=== PATIENT | male | born 1995 | race Caucasian/White ===

== ENCOUNTER 2019-01-21 19:03 | Emergency (ER) | payer OTHER, MEDICAID ==
--- NOTE | 2019-01-22 10:21 | EDM.PDOC ---
ED HPI GENERAL MEDICAL PROBLEM - General Chief Complaint: General Stated Complaint: L KNEE PAIN Time Seen by Provider: 01/21/19 19:15 Source of Information: Reports: Patient History Limitations: Reports: No Limitations - History of Present Illness INITIAL COMMENTS - FREE TEXT/NARRATIVE: According to patient, he was at work. He stepped into a hole in the ground and felt sharp pain in his left knee. Pt is here for evaluation. Pt claims this happened just prior to arrival and he has been able to walk on his left foot. Pain he rates is at 3-4/10, but present all the time. No swelling of the knee. No other complaints. Onset: Today Onset Date: 01/21/19 Onset Time: 18:30 Duration: Resolved Prior to Arrival Location: Reports: Lower Extremity, Left Quality: Reports: Ache Severity: Mild left knee Pain Score (Numeric/FACES): 3 - Related Data Allergies Allergy/AdvReac Type Severity Reaction Status Date / Time No Known Allergies Allergy Verified 01/21/19 19:30 Home Meds: Home Meds NK [No Known Home Meds] 01/21/19 [History] ED ROS GENERAL - Review of Systems Review Of Systems: See Below Constitutional: Denies: Fever, Chills HEENT: Denies: Rhinitis, Throat Pain Respiratory: Denies: Cough, Sputum Cardiovascular: Denies: Chest Pain, Lightheadedness GI/Abdominal: Denies: Abdominal Pain, Nausea, Vomiting Musculoskeletal: Reports: Joint Pain. Denies: Joint Swelling Skin: Denies: Bruising, Pruritis, Rash ED EXAM, GENERAL - Physical Exam Exam: See Below Exam Limited By: No Limitations General Appearance: Alert, WD/WN, No Apparent Distress Eye Exam: Bilateral Eye: EOMI, PERRL Ears: Normal External Exam, Normal Canal, Hearing Grossly Normal, Normal TMs Ear Exam: Bilateral Ear: Auricle Normal, Canal Normal, TM normal Nose: Normal Inspection, Normal Mucosa, No Blood Throat/Mouth: Normal Inspection, Normal Lips, Normal Teeth, Normal Gums, Normal Oropharynx, Normal Voice, No Airway Compromise Head: Atraumatic, Normocephalic Neck: Normal Inspection, Supple, Non-Tender, Full Range of Motion Respiratory/Chest: No Respiratory Distress, Lungs Clear, Normal Breath Sounds, No Accessory Muscle Use, Chest Non-Tender Cardiovascular: Normal Peripheral Pulses, Regular Rate, Rhythm, No Edema, No Gallop, No JVD, No Murmur, No Rub Extremities: Normal Inspection, Normal Range of Motion, No Pedal Edema, Normal Capillary Refill, Other (Left Knee: There is no obvious swelling or deformity of shlel knee. He does have Good ROM. Tender around the joint line. Normal Varus and valgus strain.) Neurological: Alert, Oriented, CN II-XII Intact, Normal Cognition, Normal Gait Course - Vital Signs Text/Narrative:: Pt's X-ray of left knee appears normal. Pt reassured that he has strained his knee. Motrin 800mg 3 times daily. Cold compresses 3-4 times daily.Advised to take it easy , okay to return to work. Last Recorded V/S: Last Vital Signs Temp 98.8 F 01/21/19 19:14 Pulse 112 H 01/21/19 19:14 Resp 16 01/21/19 19:14 BP 126/74 01/21/19 19:14 Pulse Ox 97 01/21/19 19:14 - Orders/Labs/Meds Orders: Active Orders 24 hr Category Date Time Status Knee 3V Lt [CR] Stat Exams 01/21/19 19:22 Taken Departure - Departure Time of Disposition: 20:00 Disposition: Home, Self-Care 01 Condition: Fair Clinical Impression: Knee strain - Discharge Information *PRESCRIPTION DRUG MONITORING PROGRAM REVIEWED*: Not Applicable *COPY OF PRESCRIPTION DRUG MONITORING REPORT IN PATIENT SHERRIE: Not Applicable Instructions: Cryotherapy, [id number], Knee Sprain, Adult, [id number] Forms: ED Department Discharge Additional Instructions: Xray is complete and WDL, the pt will be discharged home. Excedrin 3 times a day Ok to return to work and use caution. Ice packs 3-4 times a day for about 20 minutes at a time. - Problem List & Annotations (1) Knee strain SNOMED Code(s): 656321153262 Code(s): S86.919A - STRAIN OF UNSP MUSC/TEND AT LOWER LEG LEVEL, UNSP LEG, INIT Status: Acute - Problem List Review Problem List Initiated/Reviewed/Updated: Yes - My Orders Last 24 Hours: My Active Orders 01/21/19 19:22 Knee 3V Lt [CR] Stat - Assessment/Plan Last 24 Hours: My Active Orders 01/21/19 19:22 Knee 3V Lt [CR] Stat Assessment:: Knee strain Plan: Pt's X-ray of left knee appears normal. Pt reassured that he has strained his knee. Motrin 800mg 3 times daily. Cold compresses 3-4 times daily.Advised to take it easy , okay to return to work.
--- NOTE | 2019-01-22 16:42 | CR ---
CLINICAL DATA: Right knee pain- Stepped into hole in the ground. LEFT KNEE, 21 JANUARY 2019: No acute abnormalities. No lytic or blastic bone lesions. There is question of a small joint effusion. Job: [id number] [facility]
== END 2019-01-21 19:50 | disposition home or self-care (01) ==
LOC: LB.ED 19:03
DX: S86.812A Strain of other muscle(s) and tendon(s) at lower leg level, left leg, initial encounter (principal); X50.9XXA Other and unspecified overexertion or strenuous movements or postures, initial encounter
CPT/HCPCS: 73562-LT; 99283-25